=== PATIENT | female | born 1975 | race Hispanic/Latino ===

== ENCOUNTER 2018-10-20 08:29 | Day surgery (SDC) | payer OTHER ==
[~2018-10-20 08:29] MED LIST: EPOETIN ALFA 10,000 UNIT/ML ONE
--- OUTSIDE RECORDS SUMMARY | 2018-10-20 08:32 | XMS REPORT ---
:1975 Author Organization eClinicalWorks Care Team Providers Name Role Phone Braden Cornejo Provider Role Unavailable Allergies, Adverse Reactions, Alerts Substance Reaction Event Type N.K.D.A. Info Not Available Non Drug Allergy Problems Problem Type Condition Code Onset Dates Condition Status Problem Stress incontinence (female) (male) N39.3 Active Problem Obesity, unspecified E66.9 Active Problem Pain in unspecified ankle and M25.579 Active joints of unspecified foot Problem Anxiety F41.9 Active Problem Urinary frequency R35.0 Active Problem Skin necrosis I96 Active Problem Fatigue R53.83 Active Problem Snoring R06.83 Active Problem Insomnia G47.00 Active Problem HTN (hypertension) I10 Active Assessment Visit for wound check Z51.89 Active Problem Chronic depressive person F34.1 Active Problem Influenza vaccine administered Z23 Active Medications Medication Code Code Instructions Start End Status Dosage System Date Date Zithromax Z-Marky [facility] 27517873814 250 MG Orally Active 2 tablets on Once a day the first day, then 1 tablet daily for 4 days Naprosyn [facility] 22904270025 500 MG Orally Active 1 tablet with every 12 hrs food or milk as needed Hydrocodone-Johnnie ND 46345566551 10-325 MG Active 1 tablet as taminophen Orally every 6 needed hrs Propranolol HCl ND 05352625640 20 MG Orally Active 1 tablet Twice a day Soma ND 85270142872 350 MG Orally Active 1 tablet as Four times a needed day Vitamin D3 [facility] 60920829734 1000 UNIT Active 1 capsule Orally Once a day Seroquel ND 30522907505 300 MG Orally Aug 30, Active 1 tablet Once a day 2017 Bactrim DS [facility] 20744439631 800-160 MG Active 1 tablet Orally Twice a day Levofloxacin ND 93584993559 500 MG Orally Active 1 tablet Once a day BusPIRone HCl ND 35069582643 15 MG Orally Active 1 tablet Twice a day Santyl ND 85698066799 250 UNIT/GM October Active 1 application Externally Once 2017 05, to affected a day 2018 [facility] 88773324133 250 UNIT/GM October Active 1 application Externally Once 2017 to affected a day area Results No Known Results Summary Purpose eClinicalWorks Submission
--- OUTSIDE RECORDS SUMMARY | 2018-10-20 08:32 | XMS REPORT ---
[...] Active Problem HTN (hypertension) I10 Active Assessment Encounter for postoperative wound Z48.89 Active care Assessment Encounter for wound care Z51.89 Active Problem Chronic depressive person F34.1 Active Problem Influenza vaccine administered Z23 Active Medications Medication Code Code Instructions Start End Status Dosage System Date Date Santyl [facility] 38363884853 250 UNIT/GM October Active 1 application Externally Once 2017 05, to affected a day 2018 area Soma ND 65668764467 350 MG Orally Active 1 tablet as Four times a needed day Propranolol HCl ND 10134184933 20 MG Orally Active 1 tablet Twice a day Vitamin D3 [facility] 45935657423 1000 UNIT Active 1 capsule Orally Once a day Levofloxacin ND 03513874995 500 MG Orally Active 1 tablet Once a day Santyl [facility] 24472181697 250 UNIT/GM October Active 1 application Externally Once 2017 to affected a day area Hydrocodone-Johnnie ND 12356777836 10-325 MG Active 1 tablet as taminophen Orally every 6 needed hrs Zithromax Z-Marky ND 96597631646 250 MG Orally Active 2 tablets on Once a day the first day, then 1 tablet daily for 4 days Seroquel ND 26313344162 300 MG Orally Aug 30, Active 1 tablet Once a day 2017 Naprosyn ND 36905330427 500 MG Orally Active 1 tablet with every 12 hrs food or milk as needed BusPIRone HCl [facility] 72155491652 15 MG Orally Active 1 tablet Twice a day Bactrim DS [facility] 59262650678 800-160 MG Active 1 tablet Orally Twice a day Results No Known Results Summary Purpose eClinicalWorks Submission
--- OUTSIDE RECORDS SUMMARY | 2018-10-20 08:32 | XMS REPORT ---
[...] HTN (hypertension) I10 Active Assessment Encounter for wound care Z51.89 Active Problem Chronic depressive person F34.1 Active Problem Influenza vaccine administered Z23 Active Medications Medication Code Code Instructions Start End Status Dosage System Date Date BusPIRone HCl [facility] 30851872689 15 MG Orally Active 1 tablet Twice a day Levofloxacin ND 95656431034 500 MG Orally Active 1 tablet Once a day Santyl [facility] 24495999018 250 UNIT/GM October Active 1 application Externally Once 2017 05, to affected a day 2018 area Zithromax Z-Marky ND 63489951679 250 MG Orally Active 2 tablets on Once a day the first day, then 1 tablet daily for 4 days Bactrim DS [facility] 97668788832 800-160 MG Active 1 tablet Orally Twice a day Hydrocodone-Johnnie ND 46850021777 10-325 MG Active 1 tablet as taminophen Orally every 6 needed hrs Soma ND 26320808113 350 MG Orally Active 1 tablet as Four times a needed day Naprosyn ND 64773476821 500 MG Orally Active 1 tablet with every 12 hrs food or milk as needed Vitamin D3 [facility] 85294478107 1000 UNIT Active 1 capsule Orally Once a day Seroquel ND 84495043980 300 MG Orally Aug 30, Active 1 tablet Once a day 2017 Propranolol HCl ND 97585194318 20 MG Orally Active 1 tablet Twice a day Results No Known Results Summary Purpose eClinicalWorks Submission
--- OUTSIDE RECORDS SUMMARY | 2018-10-20 08:32 | XMS REPORT ---
:1975 Author Organization eClinicalWorks Care Team Providers Name Role Phone Braden Cornejo Provider Role Unavailable Allergies No Known Allergies Problems Problem Type Condition Code Onset Dates Condition Status Problem Stress incontinence (female) (male) N39.3 Active Problem Obesity, unspecified E66.9 Active Problem Pain in unspecified ankle and M25.579 Active joints of unspecified foot Problem Chronic depressive person F34.1 Active Problem Influenza vaccine administered Z23 Active Problem Anxiety F41.9 Active Problem Urinary frequency R35.0 Active Problem Skin necrosis I96 Active Problem Fatigue R53.83 Active Problem Snoring R06.83 Active Problem Insomnia G47.00 Active Problem HTN (hypertension) I10 Active Medications Medication Code Code Instructions Start End Status Dosage System Date Date Albina [facility] 76967954296 250 UNIT/GM October Active 1 application Externally Once 2017 to affected a day area Results No Known Results Summary Purpose Intent [employer] Submission
--- OUTSIDE RECORDS SUMMARY | 2018-10-20 08:32 | XMS REPORT ---
[...] Start End Status Dosage System Date Date Curity Plain [facility] 55440642118 - 07/22 packing to December 09, Active as directed Packing Strip wound daily 2018 dressing changes Results No Known Results Summary Purpose eClinicalWorks Submission
--- OUTSIDE RECORDS SUMMARY | 2018-10-20 08:32 | XMS REPORT ---
[...] I10 Active Assessment Encounter for wound care of Z51.89 Active surgical pin site Assessment Skin necrosis I96 Active Problem Chronic depressive person F34.1 Active Assessment Encounter for postoperative wound Z48.89 Active care Problem Influenza vaccine administered Z23 Active Medications Medication Code Code Instructions Start End Status Dosage System Date Date Soma [facility] 30787019567 350 MG Orally Active 1 tablet as Four times a needed day Naprosyn ND 57937053728 500 MG Orally Active 1 tablet with every 12 hrs food or milk as needed Propranolol HCl ND 21096236116 20 MG Orally Active 1 tablet Twice a day Seroquel ND 20014389543 300 MG Orally Aug 30, Active 1 tablet Once a day 2017 Zithromax Z-Marky ND 22483490317 250 MG Orally Active 2 tablets on Once a day the first day, then 1 tablet daily for 4 days Santyl ND 66501709791 250 UNIT/GM October Active 1 application Externally Once 2017 05, to affected a day 2018 area BusPIRone HCl ND 14254727068 15 MG Orally Active 1 tablet Twice a day Levofloxacin ND 16357036383 500 MG Orally Active 1 tablet Once a day Vitamin D3 [facility] 69949535301 1000 UNIT Active 1 capsule Orally Once a day Bactrim DS [facility] 57150605674 800-160 MG Active 1 tablet Orally Twice a day Hydrocodone-Johnnie [facility] 55657416131 10-325 MG Active 1 tablet as taminophen Orally every 6 needed hrs Results No Known Results Summary Purpose eClinicalWorks Submission
--- OUTSIDE RECORDS SUMMARY | 2018-10-20 08:32 | XMS REPORT ---
:1975 Author Organization eClinicalWorks Care Team Providers Name Role Phone Senior, Na Provider Role Unavailable Allergies No Known Allergies [...] Active Problem HTN (hypertension) I10 Active Assessment Insomnia G47.00 Active Problem Chronic depressive person F34.1 Active Problem Influenza vaccine administered Z23 Active Medications Medication Code System Code Instructions Start Date End Date Status Dosage Seroquel [facility] 68684670671 300 MG Orally Aug 30, Active 1 tablet Once a day 2017 Results No Known Results Summary Purpose eClinicalWorks Submission
--- OUTSIDE RECORDS SUMMARY | 2018-10-20 08:32 | XMS REPORT ---
[...] care of Z51.89 Active surgical pin site Problem Chronic depressive person F34.1 Active Problem Influenza vaccine administered Z23 Active Medications Medication Code Code Instructions Start End Status Dosage System Date Date BusPIRone HCl ND 96594005947 15 MG Orally Active 1 tablet Twice a day Propranolol HCl ND 55953022837 20 MG Orally Active 1 tablet Twice a day Zithromax Z-Marky ND 16458802488 250 MG Orally Active 2 tablets on Once a day the first day, then 1 tablet daily for 4 days Bactrim DS [facility] 43207701768 800-160 MG Active 1 tablet Orally Twice a day Seroquel ND 42102401787 300 MG Orally Aug 30, Active 1 tablet Once a day 2017 Vitamin D3 ND 57695289025 1000 UNIT Active 1 capsule Orally Once a day Soma ND 94651047486 350 MG Orally Active 1 tablet as Four times a needed day Santyl ND 77232015034 250 UNIT/GM October Active 1 application Externally Once 2017 05, to affected a day 2018 area Hydrocodone-Johnnie ND 24971208442 10-325 MG Active 1 tablet as taminophen Orally every 6 needed hrs Naprosyn ND 63959149443 500 MG Orally Active 1 tablet with every 12 hrs food or milk as needed Levofloxacin NDC 86466021192 500 MG Orally Active 1 tablet Once a day Results No Known Results Summary Purpose eClinicalWorks Submission
--- OUTSIDE RECORDS SUMMARY | 2018-10-20 08:33 | XMS REPORT ---
:1975 Author Organization eClinicalWorks Care Team Providers Name Role Phone DinonoaBraden Provider Role Unavailable Allergies, Adverse Reactions, Alerts [...] Active Problem HTN (hypertension) I10 Active Assessment Follow up Z09 Active Problem Chronic depressive person F34.1 Active Problem Influenza vaccine administered Z23 Active Medications Medication Code Code Instructions Start End Status Dosage System Date Date Zithromax Z-Marky [facility] 46744719134 250 MG Orally Active 2 tablets on Once a day the first day, then 1 tablet daily for 4 days Bactrim DS [facility] 56961845603 800-160 MG Active 1 tablet Orally Twice a day Seroquel ND 61558243978 300 MG Orally Active 1 tablet Once a day Hydrocodone-Johnnie ND 27102032699 10-325 MG Active 1 tablet as taminophen Orally every 6 needed hrs Propranolol HCl ND 96776852406 20 MG Orally Active 1 tablet Twice a day Soma ND 49905597592 350 MG Orally Active 1 tablet as Four times a needed day Santyl ND 14855300583 250 UNIT/GM October Active 1 application Externally Once 2017 to affected a day area BusPIRone HCl ND 89313824248 15 MG Orally Active 1 tablet Twice a day Levofloxacin ND 62941242484 500 MG Orally Active 1 tablet Once a day Vitamin D3 [facility] 46580074383 1000 UNIT Active 1 capsule Orally Once a day Curity Plain [facility] 47973525614 - 07/22 packing December 09 Active as directed Packing Strip to wound daily 2018 dressing changes Curity Iodoform [facility] 81153848580 - insert 07/22December 14, Active as directed Packing Strip packing into 2018 wound daily dressing changes Naprosyn [facility] 97099646831 500 MG Orally Active 1 tablet with every 12 hrs food or milk as needed Results No Known Results Summary Purpose eClinicalWorks Submission
--- OUTSIDE RECORDS SUMMARY | 2018-10-20 08:33 | XMS REPORT ---
[...] Active Problem HTN (hypertension) I10 Active Assessment HTN (hypertension) I10 Active Problem Chronic depressive person F34.1 Active Problem Influenza vaccine administered Z23 Active Medications Medication Code Code Instructions Start End Status Dosage System Date Date Propranolol HCl [facility] 11614525852 20 MG Orally Active 1 tablet Twice a day Results No Known Results Summary Purpose eClinicalWorks Submission
--- OUTSIDE RECORDS SUMMARY | 2018-10-20 08:33 | XMS REPORT ---
:1975 Author Organization eClinicalWorks Care Team Providers Name Role Phone ChantalBraden Provider Role Unavailable Allergies, Adverse Reactions, Alerts Substance Reaction Event Type N.K.D.A. Info Not Available Non Drug Allergy Problems Problem Type Condition Code Onset Dates Condition Status Problem Stress incontinence (female) N39.3 Active (male) Problem Obesity, unspecified E66.9 Active Problem Pain in unspecified ankle and M25.579 Active joints of unspecified foot Problem Anxiety F41.9 Active Problem Urinary frequency R35.0 Active Problem Skin necrosis I96 Active Problem Fatigue R53.83 Active Problem Snoring R06.83 Active Problem Insomnia G47.00 Active Problem HTN (hypertension) I10 Active Assessment Unspecified open wound of S31.109D Active abdominal wall, unspecified quadrant without penetration into peritoneal cavity, subsequent encounter Problem Chronic depressive person F34.1 Active Assessment Local infection of the skin and L08.9 Active subcutaneous tissue, unspecified Problem Influenza vaccine administered Z23 Active Medications Medication Code Code Instructions Start End Status Dosage System Date Date Bactrim DS [facility] 26276997144 800-160 MG Active 1 tablet Orally Twice a day Propranolol HCl ND 19076033108 20 MG Orally Active 1 tablet Twice a day Curity Iodoform ND 78636242596 - insert 07/22December 14, Active as directed Packing Strip packing into 2018 wound daily dressing changes BusPIRone HCl ND 97025754700 15 MG Orally Active 1 tablet Twice a day Levofloxacin ND 09047311401 500 MG Orally Active 1 tablet Once a day Naprosyn ND 52462667948 500 MG Orally Active 1 tablet with every 12 hrs food or milk as needed Vitamin D3 [facility] 52965416337 1000 UNIT Active 1 capsule Orally Once a day Santyl ND 01996738005 250 UNIT/GM October Active 1 application Externally Once 2017 to affected a day area Soma ND 40263530811 350 MG Orally Active 1 tablet as Four times a needed day Curity Plain ND 51361568459 - 07/22 packing December 09, Active as directed Packing Strip to wound daily 2018 dressing changes Seroquel [facility] 04901607879 300 MG Orally Active 1 tablet Once a day Hydrocodone-Johnnie [facility] 19745738751 10-325 MG Active 1 tablet as taminophen Orally every 6 needed hrs Zithromax Z-Marky [facility] 15181061948 250 MG Orally Active 2 tablets on Once a day the first day, then 1 tablet daily for 4 days Results No Known Results Summary Purpose eClinicalWorks Submission
--- OUTSIDE RECORDS SUMMARY | 2018-10-20 08:33 | XMS REPORT ---
[...] End Status Dosage System Date Date Curity [facility] 64268692519 - insert 07/22December 14, Active as directed Iodoform packing into 2018 Packing Strip wound daily dressing changes Results No Known Results Summary Purpose eClinicalWorks Submission
--- OUTSIDE RECORDS SUMMARY | 2018-10-20 08:33 | XMS REPORT ---
:1975 Author Organization eClinicalWorks Care Team Providers Name Role Phone LelelisaBraden Provider Role Unavailable Allergies No Known Allergies [...] End Status Dosage System Date Date Albina [facility] 28892932842 250 UNIT/GM with Feb 16, Mar 18, Active 1 application packing tightly 2017 2017 to affected into wound Once area a day to clean wound Results No Known Results Summary Purpose [employer] Submission
--- OUTSIDE RECORDS SUMMARY | 2018-10-20 08:33 | XMS REPORT ---
[...] Active Problem HTN (hypertension) I10 Active Medications No Known Medications Results No Known Results Summary Purpose eClinicalWorks Submission
--- OUTSIDE RECORDS SUMMARY | 2018-10-20 08:33 | XMS REPORT ---
[...] Assessment Encounter for wound care Z51.89 Active Assessment Encounter for postoperative wound Z48.89 Active care Problem Chronic depressive person F34.1 Active Assessment Visit for wound check Z51.89 Active Problem Influenza vaccine administered Z23 Active Medications Medication Code Code Instructions Start End Status Dosage System Date Date Propranolol HCl ND 06786203019 20 MG Orally Active 1 tablet Twice a day Santyl ND 92458635405 250 UNIT/GM December 28January Active 1 application Externally Once 2017 12, to affected a day 2018 area Soma ND 11375774443 350 MG Orally Active 1 tablet as Four times a needed day Seroquel ND 44021657820 300 MG Orally Aug 30, Active 1 tablet Once a day 2018 BusPIRone HCl ND 16078760278 15 MG Orally Active 1 tablet Twice a day Curity Iodoform ND 97028246095 - insert 07/22December 14, Active as directed Packing Strip packing into 2018 wound daily dressing changes Curity Plain NDC 48158592149 - 07/22 packing December 09, Active as directed Packing Strip to wound daily 2018 dressing changes Bactrim DS ND 79564024807 800-160 MG Active 1 tablet Orally Twice a day Levofloxacin ND 28494854238 500 MG Orally Active 1 tablet Once a day Hydrocodone-Johnnie ND 14030216335 10-325 MG Active 1 tablet as taminophen Orally every 6 needed hrs Zithromax Z-Marky [facility] 53907203632 250 MG Orally Active 2 tablets on Once a day the first day, then 1 tablet daily for 4 days Naprosyn [facility] 43159922107 500 MG Orally Active 1 tablet with every 12 hrs food or milk as needed Vitamin D3 [facility] 12889335240 1000 UNIT Active 1 capsule Orally Once a day Santyl [facility] 49365339388 250 UNIT/GM October Active 1 application Externally Once 2017 to affected a day area Results No Known Results Summary Purpose eClinicalWorks Submission
--- OUTSIDE RECORDS SUMMARY | 2018-10-20 08:34 | XMS REPORT ---
[...] Status Dosage System Date Date Propranolol HCl [facility] 14403423026 20 MG Orally Active 1 tablet Twice a day Curity Iodoform [facility] 47778570693 - insert 07/22December 14, Active as directed Packing Strip packing into 2018 wound daily dressing changes Vitamin D3 [facility] 04872008145 1000 UNIT Active 1 capsule Orally Once a day Naprosyn ND 82288386050 500 MG Orally Active 1 tablet with every 12 hrs food or milk as needed Soma ND 13512492518 350 MG Orally Active 1 tablet as Four times a needed day Zithromax Z-Marky ND 74273959197 250 MG Orally Active 2 tablets on Once a day the first day, then 1 tablet daily for 4 days Santyl [facility] 64707316279 250 UNIT/GM October Active 1 application Externally Once 2017 to affected a day area BusPIRone HCl ND 23372595247 15 MG Orally Active 1 tablet Twice a day Seroquel ND 93859252154 300 MG Orally Active 1 tablet Once a day Levofloxacin [facility] 95162959609 500 MG Orally Active 1 tablet Once a day Hydrocodone-Johnnie [facility] 91236686323 10-325 MG Active 1 tablet as taminophen Orally every 6 needed hrs Bactrim DS [facility] 02122101458 800-160 MG Active 1 tablet Orally Twice a day Curity Plain [facility] 03318561213 - 07/22 packing December 09, Active as directed Packing Strip to wound daily 2017 dressing changes Results No Known Results Summary Purpose eClinicalWorks Submission
--- OUTSIDE RECORDS SUMMARY | 2018-10-20 08:34 | XMS REPORT ---
:1975 Author Organization eClinicalWorks Care Team Providers Name Role Phone Senoir, Na Provider Role Unavailable Allergies No Known [...] HTN (hypertension) I10 Active Medications Medication Code System Code Instructions Start Date End Date Status Dosage Seroquel [facility] 55552543493 300 MG Orally Active 1 tablet Once a day at bedtime Results No Known Results Summary Purpose eClinicalWorks Submission
--- OUTSIDE RECORDS SUMMARY | 2018-10-20 08:34 | XMS REPORT ---
[...] End Status Dosage System Date Date Santyl [facility] 31854614036 250 UNIT/GM October Active 1 application Externally Once 2017 to affected a day area Soma ND 36772902222 350 MG Orally Active 1 tablet as Four times a needed day Seroquel [facility] 91805830008 300 MG Orally Active 1 tablet Once a day Propranolol HCl ND 29985458031 20 MG Orally Active 1 tablet Twice a day BusPIRone HCl ND 32733497129 15 MG Orally Active 1 tablet Twice a day Bactrim DS ND 69531917306 800-160 MG Active 1 tablet Orally Twice a day Levofloxacin [facility] 73195956840 500 MG Orally Active 1 tablet Once a day Curity Plain ND 22357625333 - 07/22 packing December 09, Active as directed Packing Strip to wound daily 2018 dressing changes Curity Iodoform ND 41853938187 - insert 07/22December 14, Active as directed Packing Strip packing into 2018 wound daily dressing changes Zithromax Z-Marky ND 75511947264 250 MG Orally Active 2 tablets on Once a day the first day, then 1 tablet daily for 4 days Naprosyn [facility] 11912192594 500 MG Orally Active 1 tablet with every 12 hrs food or milk as needed Vitamin D3 [facility] 99829090195 1000 UNIT Active 1 capsule Orally Once a day Hydrocodone-Johnnie [facility] 04074369893 10-325 MG Active 1 tablet as taminophen Orally every 6 needed hrs Results No Known Results Summary Purpose eClinicalWorks Submission
[2018-10-20 08:47] LABS: Specific Gravity 1.015 (1.005-1.030)
[2018-10-20] MEDS ORDERED: Ringers Lactate 1,000 ML IV ONE (08:52)
[2018-10-20] MEDS ORDERED: FENTANYL CITR 100 MCG/2 ML ONE ×3 (09:07→11:28)
[2018-10-20] MEDS ORDERED: LIDOCAINE 2% MPF 5 ML VIAL ONE (09:07)
[2018-10-20] MEDS ORDERED: MIDAZOLAM HCL 2 MG/2 ML INJ ONE ×2 (09:07→09:57)
[2018-10-20] MEDS ORDERED: ONDANSETRON 4 MG/2 ML VIAL ONE ×2 (09:07→11:20)
[2018-10-20] MEDS ORDERED: PROPOFOL 200 MG/20 ML VIAL IV ONE ×2 (09:07→09:57)
[2018-10-20] MEDS: BUPIVACA 0.25%/EPI 0.0005% MDV 50 ML VIAL ONE ×2 (09:41→10:02)
[2018-10-20] MEDS ORDERED: LIDOCAINE 1% MPF 5 ML VIAL ONE (09:57)
[2018-10-20] MEDS: CEFAZOLIN/SWI 1gm 1 GM/10 ML SYR ONE ×3 (10:03→10:25)
[2018-10-20] MEDS ORDERED: KETOROLAC 30 MG/ML INJ ONE (10:47)
--- NOTE | 2018-10-20 11:50 | P.OP ---
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
[2018-10-20] MEDS ORDERED: MEPERIDINE HCL 25 MG/0.5 ML ONE (12:33)
[2018-10-20] MEDS ORDERED: HYDROCODONE/APAP 5/325 MG TAB ONE (13:41)
--- NOTE | 2018-10-20 23:26 | OP ---
Date of Procedure: 10/20/2018 Surgeon: Braden Cornejo MD, Preoperative Diagnoses: Right abdominopelvic chronic draining wound with sinus. Postoperative Diagnoses: Right abdominopelvic chronic draining wound with sinus. Procedure Performed: A wide excision of right abdominopelvic chronic draining wound with sinus. Anesthesia: General endotracheal. Estimated Blood Loss: Less than cc. Specimen: Debridement tissue and skin. Findings: Draining sinus tract from skin surface undermined from lateral to medial for approximately 12 cm long segment with draining sinus and tracked about the thickness of a thumb extending to the a bdominal wall, but not into the abdominal wall. Complications: None. Transferred to recovery room in good condition. Procedure In Detail: After informed consent was obtained, the patient was brought to the operating r oom, prepped and draped in the usual sterile fashion. After adequate anesthesia was achieved, an ell iptical incision was made for approximately 7 cm x 5 cm around a chronic draining sinus wound of the right abdominopelvic, abdominal skin. The skin and subcutaneous tissues were dissected circumferenti ally. A probe was placed into the chronic wound to determine its distal extent and I circumferential ly dissected using electrocautery on the anterior surface of the abdominal wall, but not into the abd ominal wall. I circumferentially dissected this chronic draining wound on the undersurface of the sk in all the way to approximately 12-14 cm in length. It was approximately the size of the thumb in it s tubular, slightly conical shape. It was taken out in its entirety and sent off for pathologic exam ination with the associated skin. All necrotic tissue was removed. The area was copiously irrigated multiple times until completely dry. Hemostasis was easily achieved with electrocautery. The abdom inal wall was not violated. I then created some skin flaps circumferentially in a deep dermal aspect and I was able to reapproximate the skin using 3-0 interrupted Vicryl sutures as well as a running 4 -0 Monocryl stitch and Dermabond placed over the top. The patient tolerated the procedure well witho ut evidence of complications, transferred to the PACU in good condition. All counts were correct at the end of the case. RANDI/CHANTELLE Voice ID: [id number] Report ID: [id number]
== END 2018-10-20 13:51 | disposition home or self-care (01) ==
LOC: OR 08:29
PROVIDERS: ATTEND Surgery
PROC: 0JB80ZZ Excision of Abdomen Subcutaneous Tissue and Fascia, Open Approach (ICD-10-PCS; principal; 2018-10-20 10:30)
DX: S31.109A Unspecified open wound of abdominal wall, unspecified quadrant without penetration into peritoneal cavity, initial encounter (principal); X58.XXXA Exposure to other specified factors, initial encounter; L08.9 Local infection of the skin and subcutaneous tissue, unspecified; F32.9 Major depressive disorder, single episode, unspecified; F41.9 Anxiety disorder, unspecified; G47.00 Insomnia, unspecified; I10 Essential (primary) hypertension; N39.3 Stress incontinence (female) (male); Z79.899 Other long term (current) drug therapy
CPT/HCPCS: 81025; 88304; J0690; J0885; J2175; J2250; J2405; J2704; J3010

== ENCOUNTER 2023-12-01 05:34 | Emergency (ER) | payer SELFPAY ==
--- OUTSIDE RECORDS SUMMARY | 2023-12-01 05:37 | XMS REPORT | Continuity of Care Document ---
Author Name Unknown Address [address] 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 Role Phone Unavailable Unavailable Unavailable Problems Condition Name Condition Details Condition Category Status Onset Date Resolution Date Last Treatment Date Treating Clinician Comments Source Stress incontinen ce (female) (male) Stress incontinen ce (female) (male) Problem Active [facility] Obesity, unspecifie d Obesity, unspecifie d Problem Active [facility] Pain in unspecifie d ankle and joints of unspecifie d foot Pain in unspecifie d ankle and joints of unspecifie d foot Problem Active [facility] Anxiety Anxiety Problem Active [facility] Urinary frequency Urinary frequency Problem Active [facility] Skin necrosis Skin necrosis Problem Active [facility] Fatigue Fatigue Problem Active [facility] Snoring Snoring Problem Active [facility] Insomnia Insomnia Problem Active [facility] HTN (hypertens ion) HTN (hypertens ion) Problem Active [facility] Chronic depressive person Chronic depressive person Problem Active [facility] Influenza vaccine administer ed Influenza vaccine administer ed Problem Active [facility] Body mass index (BMI) of 32.0 to 32.9 in adult Body mass index (BMI) of 32.0 to 32.9 in adult Problem Active [facility] Screening for cervical cancer Screening for cervical cancer Problem Active [facility] Screening for breast cancer Screening for breast cancer Problem Active [facility] Breast mass, left Breast mass, left Problem Active [facility] Encounter for general adult medical examinatio n without abnormal findings Encounter for general adult medical examinatio n without abnormal findings Problem Active [facility] Presence of bilateral breast implant Presence of bilateral breast implant Problem Active [facility] Routine gynecologi syeda examinatio n Routine gynecologi syeda examinatio n Problem Active [facility] Medications Ordered Medication Name Filled Medication Name Start Date Stop Date Current Medication? Ordering Clinician Indication Dosage Frequency Signature (SIG) Comments Components Source PredniSONE PredniSONE 02-12 00:00: 00 02-22 00:00 :00 No Na Senior 2 tablets dailyx 5 days then 1 tablet daily x 5 days [facility] Curity Iodoform Packing Strip Curity Iodoform Packing Strip 529 00:00: 00 Yes Na Senior as directed [facility] Curity Plain Packing Strip Curity Plain Packing Strip 524 00:00: 00 Yes Na Senior as directed [facility] Santyl Santyl 4-26 00:00: 00 Yes Na Senior 1 applicatio n to affected area [facility] Seroquel Seroquel Yes Na Senior 1 tablet [facility] BusPIRone HCl BusPIRone HCl Yes Na Senior 1 tablet [facility] Bactrim DS Bactrim DS Yes Na Senior 1 tablet [facility] Naprosyn Naprosyn Yes Na Senior 1 tabl et with food or milk as needed [facility] Propranolol HCl Propranolol HCl Yes Na Senior 1 tablet [facility] Vitamin D3 Vitamin D3 Yes Na Senior 1 capsule [facility] Hydrocodone -Acetaminop hen Hydrocodone -Acetaminop hen Yes Na Senior 1 tablet as needed [facility] Soma Soma Yes Na Senior 1 tablet as needed [facility] Levofloxaci n Levofloxaci n Yes Na Senior 1 tablet [facility] Zithromax Z-Marky Zithromax Z-Marky Yes Na Senior 2 tablets on the first day, then 1 tablet daily for 4 days [facility] Medrol Medrol Yes Na Senior 1 tablet with food or milk [facility] Motrin Motrin Yes Na Senior not defined [facility] Seroquel Seroquel Yes Na Senior 1 tablet [facility] Acyclovir Acyclovir Yes Na Senior 1 tablet [facility] Encounters Start Date/Time End Date/Time Encounter Type Admission Type Attending [facility] Care Facility Care Department Encounter ID Source 2023-09-02 14:47:29 2023-09-02 14:47:29 Outpatient [facility] [id number] Hollis Sherman 2023-07-23 13:24:15 2023-07-23 13:24:15 Outpatient [facility] SFA [id number] Hollis Sherman 2023-06-29 10:33:26 2023-06-29 10:33:26 Outpatient [facility] SFA [id number] Hollis Sherman 2023-06-28 13:17:17 2023-06-28 13:17:17 Outpatient [facility] SFA [id number] Hollis Sherman 2023-06-03 13:16:45 2023-06-03 13:16:45 Outpatient [facility] SFA [id number] Hollis Sherman 2023-06-02 13:28:36 2023-06-02 13:28:36 Outpatient [facility] SFA [id number] Hollis Sherman 2023-05-06 15:32:13 2023-05-06 15:32:13 Outpatient [facility] SFA [id number] Hollis Sherman 2023-05-04 10:34:24 2023-05-04 10:34:24 Outpatient [facility] SFA [id number] Hollis Sherman 2023-04-02 15:13:06 2023-04-02 15:13:06 Outpatient [facility] SFA [id number] Hollis Sherman 2023-03-10 14:11:31 2023-03-10 14:11:31 Outpatient [facility] SFA [id number] Hollis Sherman 2023-02-05 10:51:13 2023-02-05 10:51:13 Outpatient [facility] SFA [id number] Hollis Sherman 2023-01-15 11:06:04 2023-01-15 11:06:04 Outpatient [facility] SFA [id number] Hollis Sherman 2023-01-01 10:59:16 2023-01-01 10:59:16 Outpatient [facility] SFA [id number] Hollis Sherman 2022-12-25 10:55:19 2022-12-25 10:55:19 Outpatient [facility] SFA [id number] Hollis Sherman 2022-12-18 11:07:31 2022-12-18 11:07:31 Outpatient [facility] SFA [id number] Hollis Sherman 2022-12-15 16:04:43 2022-12-15 16:04:43 Outpatient [facility] SFA [id number] Hollis Sherman 2022-12-11 15:04:20 2022-12-11 15:04:20 Outpatient [facility] SFA [id number] Hollis Sherman 2022-12-10 09:21:28 2022-12-10 09:21:28 Outpatient [facility] SFA [id number] Hollis Sherman 2022-12-08 16:01:09 2022-12-08 16:01:09 Outpatient [facility] SFA [id number] Hollis Sherman 2020-02-12 09:32:00 2020-02-12 09:32:[address] [id number] 2020-01-29 11:29:00 2020-01-29 11:29:[address] [facility] [id number] [facility] 2020-01-24 09:00:00 2020-01-24 09:00:00 [facility] [id number] [facility] 2020-01-22 11:04:00 2020-01-22 11:04:[address] [facility] [id number] [facility] 2019-07-02 02:52:00 2019-07-02 02:52:[address] [id number] [facility] 2019-06-27 09:00:00 2019-06-27 09:00:00 [facility] [id number] [facility] 2019-05-31 14:31:00 2019-05-31 14:31:00 [facility] [id number] [facility] 2019-05-31 09:20:00 2019-05-31 09:20:[address] [facility] [id number] [facility] 2018-11-28 16:07:00 2018-11-28 16:07:[address] [facility] [id number] [facility] 2018-11-23 10:45:00 2018-11-23 10:45:00 [facility] [id number] [facility] 2018-11-10 10:11:00 2018-11-10 10:11:00 [facility] [id number] [facility] 2018-11-02 09:47:00 2018-11-02 09:47:[address] [facility] [id number] [facility] 2018-11-01 08:45:00 2018-11-01 08:45:00 [facility] [id number] [facility] 2018-10-27 15:30:00 2018-10-27 15:30:00 [facility] [id number] [facility] 2018-10-18 13:30:00 2018-10-18 13:30:00 [facility] [id number] [facility] 2018-09-06 10:16:00 2018-09-06 10:16:00 [facility] [id number] [facility] 2018-08-25 13:38:00 2018-08-25 13:38:[address] [facility] [address] [facility] [id number] [facility] 2018-08-16 15:00:00 2018-08-16 15:00:00 [facility] [id number] [facility] 2018-07-28 15:00:00 2018-07-28 15:00:00 [facility] [id number] [facility] 2018-04-12 10:45:00 2018-04-12 10:45:00 [facility] [id number] [facility] 2018-03-29 13:30:00 2018-03-29 13:30:00 [facility] [id number] [facility] 2018-02-21 14:30:00 2018-02-21 14:30:00 [facility] [id number] [facility] 2018-02-16 16:11:00 2018-02-16 16:11:00 [facility] [id number] [facility] 2018-02-04 10:35:00 2018-02-04 10:35:00 [facility] [id number] [facility] 2017-12-28 14:00:00 2017-12-28 14:00:00 [facility] [id number] [facility] 2017-12-14 10:22:00 2017-12-14 10:22:[address] [facility] [id number] [facility] 2017-12-14 09:45:00 2017-12-14 09:45:00 [facility] [id number] [facility] 2017-12-09 08:41:00 2017-12-09 08:41:00 [facility] [id number] [facility] 2017-11-30 10:00:00 2017-11-30 10:00:00 [facility] [id number] [facility] 2017-11-16 10:00:00 2017-11-16 10:00:00 [facility] [id number] [facility] 2017-11-15 14:30:00 2017-11-15 14:30:[address] [facility] [facility] [id number] [facility] 2017-11-11 10:51:00 2017-11-11 10:51:00 [facility] [id number] [facility] 2017-11-02 09:15:00 2017-11-02 09:15:00 [facility] [id number] [facility] 2017-10-27 15:00:00 2017-10-27 15:00:00 [facility] [id number] [facility] 2017-10-21 15:15:00 2017-10-21 15:15:00 [facility] [id number] [facility] Results Test Description Test Time Test Comments Results Result Co mments Source COMPREHENSIVE METABOLIC [id number] 05:43:59* Test Item Value Reference Range Interpretation Comme nts GLUCOSE (test code = 2217) 111 MG/DL 70-99 H BUN (test code = 220) 8 MG/DL 6-20 CREATININE (test code = 2214) 0.65 MG/DL 0.60-1.30 eGFR (2020 CKD-EPI) (test code = 42446) 111 ML/MIN/1.73 >60 CALC BUN/CREAT (test code = 2235) 12 RATIO 6-28 SODIUM (test code = 223) 144 MEQ/L 133-146 POTASSIUM (test code = 2228) 4.6 MEQ/L 3.5-5.4 CHLORIDE (test code = 2215) 104 MEQ/L 95-107 CARBON DIOXIDE (test code = 2206) 21 MEQ/L 19-31 CALCIUM (test code = 2209) 10.0 MG/DL 8.5-10.5 PROTEIN, TOTAL (test code = 2229) 7.6 G/DL 6.1-8.3 ALBUMIN (test code = 2201) 4.7 G/DL 3.5-5.2 CALC GLOBULIN (test code = 2240) 2.9 G/DL 1.9-3.7 CALC A/G RATIO (test code = 2234) 1.6 RATIO 1.0-2.6 BILIRUBIN, TOTAL (test code = 2207) <0.2 MG/DL See_Comment [Automated me ssage] The system which generated this result transmitted reference range: <=1.2. The reference range was not used to interpret this result as normal/abnormal. ALKALINE PHOSPHATASE (test code = 2204) 71 U/L 40-116 AST (test code = 2218) 28 U/L 9-40 ALT (test code = 2219) 23 U/L 5-40 HIV 1/2 4TH GEN, RFLX [id number] 04:38:10* Test Item Value Reference Range Interpretation Comme nts HIV 1/2 4TH GEN, RFLX CONF ( test code = 3514) NON-REACTIVE NON-REACTIVE HEPATITIS PANEL, [id number] 04:38:10* Test Item Value Reference Range Interpretation Comme nts HEPATITIS A IgM (test code = 18108) NON-REACTIVE NON-REACTIVE HEPATITIS B CORE IgM (test code = 4644) NON-REACTIVE NON-REACTIVE HEPATITIS B SURF AG (test code = 2739) NON-REACTIVE NON-REACTIVE HEPATITIS C ANTIBODY (test code = 4675) NON-REACTIVE NON-REACTIVE INTERPRETATION HEPATITIS A: (test code = 2552) (NOTE) Hepatitis A sero logy shows no evidence of acute hepatitis A. INTERPRETATION HEPATITIS B: (test code = 05952) (NOTE) Hepatitis B sero logy shows no evidence of acute hepatitis B andno indication of exposure to hepatitis B virus in the previous tushar eight months. INTERPRETATION HEPATITIS C: (test code = 13440) (NOTE) Hepatitis C sero logy shows no evidence of exposure to hepatitisC virus at this time. It can take up to 12 months after exposure tothe hepatitis C virus for antibodies to become detectable in the blood in certain patients. UNLESS OTHERWISE INDICATED, ALL TESTING PERFORMED AT [facility] [address] [place] [address] [employer]: JULITO MENDOSA M.D. CLIA NUMBER [id number] [facility] [place]. [id number] CBC W/AUTO DIFF WITH [id number] 03:12:26* Test Item Value Reference Range Interpretation Comme nts WBC (test code = 1001) 6.8 K/UL 3.5-11.0 RBC (test code = 1002) 4.63 M/UL 3.80-5.40 HEMOGLOBIN (test code = 1003) 13.2 G/DL 11.5-15.5 HEMATOCRIT (test code = 1004) 39.7 % 34.0-45.0 MCV (test code = 1005) 85.7 fL 80.0-99.0 MCH (test code = 1006) 28.5 PG 25.0-33.0 MCHC (test code = 1007) 33.2 G/DL 31.0-36.0 RDW (test code = 1038) 13.9 % 11.5-15.0 NEUTROPHILS (test code = 1008) 67.8 % LYMPHOCYTES (test code = 1010) 19.8 % MONOCYTES (test code = 1011) 10.3 % EOSINOPHILS (test code = 1012) 0.9 % BASOPHILS (test code = 1013) 0.9 % IMMATURE GRANULOCYTES (test code = 1036) 0.3 % NUCLEATED RBCS (test code = 1065) 0.0 /100 WBC'S See_Comment [Automated Vinvelia ge] The system which generated this result transmitted reference range: 0.0. The reference range was not used to interpret this result as normal/abnormal. PLATELET COUNT (test code = 1015) 406 K/UL 130-400 H ABSOLUTE NEUTROPHILS (test code = 1066) 4.62 K/UL 1.50-7.50 ABSOLUTE LYMPHOCYTES (test code = 1067) 1.35 K/UL 1.00-4.00 ABSOLUTE MONOCYTES (test code = 1068) 0.70 K/UL 0.20-1.00 ABSOLUTE EOSINOPHILS (test code = 1040) 0.06 K/UL 0.00-0.50 ABSOLUTE BASOPHILS (test code = 1069) 0.06 K/UL 0.00-0.20 ABS IMMATURE GRANULOCYTES (test code = 1020) 0.02 K/UL 0.00-0.10 ABS NUCLEATED RBCS (test code = 29677) 0.00 K/UL 0.00-0.11
[2023-12-01] MEDS ORDERED: ONDANSETRON 4 MG/2 ML VIAL ONE (05:49)
[2023-12-01] MEDS ORDERED: MORPHINE 2 MG/ML SYR ONE (05:49)
[2023-12-01] MEDS ORDERED: KETOROLAC 30 MG/ML INJ ONE (05:50)
[2023-12-01] MEDS ORDERED: METOCLOPRAMIDE 10 MG/2mL INJ ONE (05:50)
[2023-12-01] MEDS ORDERED: NA CHLORIDE 0.9% 1,000 ML ONE ×2 (05:50→06:39)
[2023-12-01] MEDS ORDERED: FAMOTIDINE 20 MG/2 ML VIAL IV ONE (05:50)
[2023-12-01] MEDS ORDERED: MORPHINE 4 MG/ML SYR ONE (05:50)
[2023-12-01 06:22] LABS: Absolute Basophils 0.1 K/uL (0-0.5); Absolute Lymphocytes (CBC) 1.4 K/uL (0.7-4.9); Absolute Monocytes 0.4 K/uL (0.1-1.3); Absolute Neutrophil 8.1 K/uL (1.8-8.0); Basophils % 0.5 % (0-1.3); Hematocrit 46.5 % (36.0-45.0); Hemoglobin 15.7 g/dL (12.0-15.0); Lymphocytes % 14.5 % (15.3-44.8); MCH 29.3 pg (27.0-35.0); MCHC 33.8 g/dL (32.0-36.0); MCV 86.7 fL (80-100); Monocytes % 4.3 % (3.3-12.3); Neutrophils % 80.7 % (41.7-73.7); Platelets 305 thou/uL (152-406); RBC Red Blood Cell Count 5.36 M/uL (3.86-4.86); Red Cell Distribution Width 13.7 % (12.1-15.2)
[2023-12-01 06:37] LABS: Albumin 4.2 g/dL (3.4-5.0); Albumin/Globulin Ratio 0.9 (1.1-1.8); Anion Gap 11.7 mEq/L (5.0-15.0); Bilirubin Total 0.7 mg/dL (0.2-1.0); Globulin 4.8 g/dL (2.3-3.5); Potassium 3.7 mEq/L (3.5-5.1)
--- NOTE | 2023-12-01 07:23 | RAD REPORT ---
EXAM DESCRIPTION: CTAbdomen Pelvis W Contrast - 12/01/2023 6:56 am CLINICAL HISTORY: Abdominal pain. ABD PAIN COMPARISON: No comparisons TECHNIQUE: Biphasic CT imaging of the abdomen and pelvis was performed with 100 ml non-ionic IV cont rast. All CT scans are performed using dose optimization technique as appropriate and may include automated exposure control or mA/KV adjustment according to patient size. FINDINGS: The lung bases are clear.Postsurgical changes about the stomach. The liver demonstrates diffuse fatty infiltration. Cholecystectomy clips. The spleen, pancreas, adren al glands and kidneys are within normal limits. Parapelvic left benign renal cysts. Lipoma is noted a long the right oblique musculature measuring 4.6 cm. No bowel obstruction, free air, free fluid or abscess. The appendix is normal. No evidence of signi ficant lymphadenopathy. Mild lumbosacral degenerative changes. IMPRESSION: No acute intra-abdominal or pelvic finding. Mild fatty liver.
[2023-12-01 07:25] LABS: Specific Gravity 1.015 (1.005-1.030); Urine Bilirubin NEGATIVE (Negative); Urine Blood Negative (Negative); Urine Clarity Clear (Clear); Urine Color Colorless (Yellow); Urine Glucose NEGATIVE (Negative); Urine Ketones NEGATIVE (Negative); Urine Microscopic Reflex YN NO UMIC; Urine Nitrite NEGATIVE (Negative); Urine Protein NEGATIVE (Negative); Urine Urobilinogen Normal (Normal); Urine pH 7.5 (5.0-7.0)
--- NOTE | 2023-12-01 07:37 | EDPHYS ---
Physician Documentation [facility] Name: Maya Sosa Age: 48 yrs Sex: Female : 1975 Arrival Date: 12/01/2023 Time: 05:34 Bed 6 Private MD: ED Physician Bao Lucas HPI: 11/30 05:38 This 48 yrs old Female presents to ER via Unassigned with complaints of sp4 Nausea/Vomiting, Fever. 07:32 48-year-old female with history of gastric sleeve and cholecystectomy presents with sp4 acute onset nausea vomiting and epigastric abdominal pain starting at 2 hours prior to arrival associated with profuse vomiting. . Historical: - Allergies: 05:51 No Known Allergies; pf1 - PMHx: 05:51 Hypertension; Anxiety; Depressive disorder; pf1 - PSHx: 05:52 gastric sleeve; lap band; tummy tuck; left ankle; Cholecystectomy; pf1 - Immunization history:: Adult Immunizations not up to date, Client reports having NOT received the Covid vaccine. Last tetanus immunization: > 10 years ago Flu vaccine is not up to date. - Infectious Disease History:: Denies. - Social history:: Smoking status: Patient reports the use of cigarette tobacco products, denies chronic smoking, but will smoke occasionally, Patient uses alcohol, on a daily basis. Patient/guardian denies using street drugs. - Family history:: not pertinent. ROS: 07:32 Constitutional: Negative for fever, chills, and weight loss, positive nausea vomiting sp4 and epigastric abdominal pain 07:32 All other systems are negative, Exam: 07:32 Constitutional: This is a well developed, well nourished patient who is awake, alert, sp4 and in moderate distress secondary to vomiting Head/Face: Normocephalic, atraumatic. Eyes: Pupils equal round and reactive to light, extra-ocular motions intact. Lids and lashes normal. Conjunctiva and sclera are not injected. Cornea within normal limits. Periorbital areas with no swelling, redness, or edema. ENT: Nares patent. No nasal discharge, no septal abnormalities noted. Tympanic membranes are normal and external auditory canals are clear. Oropharynx with no redness, swelling, or masses, exudates, or evidence of obstruction, uvula midline. Mucous membranes moist. Neck: Trachea midline, no thyromegaly or masses palpated, and no cervical lymphadenopathy. Supple, full range of motion without nuchal rigidity, or vertebral point tenderness. Chest/axilla: Normal chest wall appearance and motion. Nontender with no deformity. No lesions are appreciated. Cardiovascular: Regular rate and rhythm with a normal S1 and S2. No gallops, murmurs, or rubs. Normal PMI, no JVD. No pulse deficits. Respiratory: Lungs have equal breath sounds bilaterally, clear to auscultation and percussion. No rales, rhonchi or wheezes noted. No increased work of breathing, no retractions or nasal flaring. Abdomen/GI: Soft, with normal bowel sounds. No distension or tympany. No guarding or rebound. No evidence of tenderness throughout. Back: No spinal tenderness. No costovertebral tenderness. Skin: Warm, dry with normal turgor. Normal color with no rashes, no lesions, and no evidence of cellulitis. MS/ Extremity: Pulses equal, no cyanosis. Neurovascular intact. Full, normal range of motion. Neuro: Awake and alert, GCS 15, oriented to person, place, time, and situation. Cranial nerves II-XII grossly intact. Motor strength 5/5 in all extremities. Sensory grossly intact. Psych: Awake, alert, with orientation to person, place and time. Behavior, mood, and affect are within normal limits Vital Signs: 05:38 BP 169 / 126; Pulse 76; Resp 18; Temp 97.9; Pulse Ox 100% on R/A; Weight 101.6 kg; pf1 Height 5 ft. 7 in. ; Pain 10/10; 07:58 BP 146 / 94; Pulse 71; Resp 18; Pulse Ox 99% on R/A; rs5 05:38 Body Mass Index 35.08 (101.60 kg, 170.18 cm) pf1 05:38 Pain Scale: Adult pf1 [place] Coma Score: 07:32 Eye Response: spontaneous(4). Motor Response: obeys commands(6). Verbal Response: sp4 oriented(5). Total: 15. MDM: 06:09 Patient medically screened. sp4 07:32 Differential diagnosis: Nonspecific abd pain, gastritis, pancreatitis, appendicitis, sp4 diverticulitis, viral gastroenteritis, gastroenteritis. Data reviewed: vital signs, nurses notes, old medical records, lab test result(s), radiologic studies, CT scan. Consideration of Admission/Observation Escalation of care including admission/observation considered. ED course: EXAM DESCRIPTION: CTAbdomen Pelvis W Contrast - 12/01/2023 6:56 am CLINICAL HISTORY: Abdominal pain. ABD PAIN COMPARISON: No comparisons TECHNIQUE: Biphasic CT imaging of the abdomen and pelvis was performed with 100 ml non-ionic IV contrast. All CT scans are performed using dose optimization technique as appropriate and may include automated exposure control or mA/KV adjustment according to patient size. FINDINGS: The lung bases are clear.Postsurgical changes about the stomach. The liver demonstrates diffuse fatty infiltration. Cholecystectomy clips. The spleen, pancreas, adrenal glands and kidneys are within normal limits. Parapelvic left benign renal cysts. Lipoma is noted along the right oblique musculature measuring 4.6 cm. No bowel obstruction, free air, free fluid or abscess. The appendix is normal. No evidence of significant lymphadenopathy. Mild lumbosacral degenerative changes. IMPRESSION: No acute intra-abdominal or pelvic finding. Mild fatty liver. ED course: Patient's pain has improved. Patient will be discharged home with as needed ondansetron and tramadol also clear liquid diet for 24 hours.. 11/30 05:42 Order name: CBC with Diff; Complete Time: 07:05 sp4 11/30 05:42 Order name: CMP; Complete Time: 07:05 sp4 11/30 05:42 Order name: Lipase; Complete Time: 07:05 sp4 11/30 05:42 Order name: Urinalysis w/ reflexes; Complete Time: 07:26 sp4 11/30 05:43 Order name: CT Abd/Pelvis - IV Contrast Only; Complete Time: 07:26 sp4 11/30 05:42 Order name: IV Saline Lock; Complete Time: 05:54 sp4 11/30 05:42 Order name: Labs collected and sent; Complete Time: 06:33 sp4 Administered Medications: 06:02 Drug: NS 0.9% IV 1000 ml IV at 1 bolus Per protocol; 1000 mL bolus Route: IV; Rate: 1 tm6 bolus; Site: right antecubital; 07:01 Follow up: Response: No adverse reaction rs5 06:02 Drug: morphine IVP or IV 6 mg IVP once over 4 mins Route: IVP; Infused Over: 4 mins; tm6 Site: right antecubital; 07:01 Follow up: Response: No adverse reaction; Pain is decreased rs5 06:02 Drug: metoCLOPramide IVP 10 mg IVP once; over 1 to 2 minutes Route: IVP; Site: right tm6 antecubital; 07:01 Follow up: Response: No adverse reaction rs5 06:02 Drug: Famotidine IVP 20 mg IVP once; dilute with 10 mL 0.9% NaCl; give over 2 minutes tm6 Route: IVP; Site: right antecubital; 07:01 Follow up: Response: No adverse reaction rs5 06:02 Drug: Ketorolac IVP 30 mg IVP once Route: IVP; Site: right antecubital; tm6 07:00 Follow up: Response: No adverse reaction rs5 06:03 Drug: Ondansetron IVP 4 mg IVP once; over 2 minutes Route: IVP; Site: right antecubital;tm6 07:00 Follow up: Response: No adverse reaction rs5 07:01 Drug: NS 0.9% IV 1000 ml IV at 125 ml/hr continuous Route: IV; Rate: 125 ml/hr; Site: rs5 right femoral; 07:15 Follow up: Response: No adverse reaction rs5 07:33 Drug: HYDROcodone-acetaminophen PO 5 mg-325 mg 2 tabs PO once Route: PO; rs5 07:59 Follow up: Response: No adverse reaction rs5 07:33 Drug: Promethazine PO 25 mg PO once Route: PO; rs5 07:59 Follow up: Response: No adverse reaction rs5 Disposition Summary: 12/01/23 07:36 Discharge Ordered Notes: Clear liquid diet for 24 hours Location: Home sp4 Problem: new sp4 Symptoms: have improved sp4 Condition: Stable sp4 Diagnosis - Nausea with vomiting, unspecified sp4 - Acute gastroenteritis with nausea and vomiting sp4 Followup: sp4 - With: Private Physician - When: 7 - 10 days - Reason: Recheck today's complaints Discharge Instructions: - Discharge Summary Sheet sp4 - Nausea and Vomiting, Adult sp4 Forms: - Work release form sp4 - Patient Portal Instructions sp4 Prescriptions: - Tramadol 50 mg Oral tablet - take 1 tablet ORAL route every 8 hours as needed; 20 tablet; Refills: 0, sp4 Product Selection Permitted - ondansetron 8 mg Oral Tablet,disintegrating - take 1 tablet ORAL route every 8 hours PRN nausea; 30 tablet; Refills: 0, sp4 Product Selection Permitted Signatures: Dispatcher [employer] EDMS Frida Petty, RN RN pf1 Rafael Foreman RN RN rs5 Bao Lucas MD MD sp4 Leisa Trujillo RN RN tm6 Corrections: (The following items were deleted from the chart) 05:43 05:43 CBC+H.LAB.BRZ ordered. EDMS EDMS 05:43 05:43 COMPREHENSIVE METABOLIC PANEL+C.LAB.BRZ ordered. EDMS EDMS 05:43 05:43 LIPASE+C.LAB.BRZ ordered. EDMS EDMS 05:43 05:43 Urinalysis+U.LAB.BRZ ordered. EDMS EDMS
--- NOTE | 2023-12-01 07:37 | ER ---
Nurse's Notes [facility] Name: Maya Sosa Age: 48 yrs Sex: Female : 1975 Arrival Date: 12/01/2023 Time: 05:34 Bed 6 Private MD: Diagnosis: Nausea with vomiting, unspecified;Acute gastroenteritis with nausea and vomiting Presentation: 11/30 05:38 Chief complaint: Patient states: mid abdominal pain of 10 with vomiting,onset 1630 pf1 yesterday. 05:38 Coronavirus screen: Vaccine status: Patient reports being unvaccinated. Client denies pf1 travel out of the [place] in the last 14 days. At this time, the client does not indicate any symptoms associated with coronavirus-19. Ebola Screen: Patient negative for fever greater than or equal to 101.5 degrees Fahrenheit, and additional compatible Ebola Virus Disease symptoms. Initial Sepsis Screen: Does the patient meet any 2 criteria? No. Patient's initial sepsis screen is negative. Does the patient have a suspected source of infection? No. Patient's initial sepsis screen is negative. Risk Assessment: Do you want to hurt yourself or someone else? Patient reports no desire to harm self or others. Onset of symptoms was November 30, 2023. 05:38 Method Of Arrival: Wheelchair pf1 05:38 Acuity: STEFANIE 3 pf1 Triage Assessment: 05:53 General: Appears in no apparent distress. uncomfortable, obese, well groomed, well pf1 developed, Behavior is cooperative, appropriate for age, anxious. Pain: Complains of pain in abdomen. GI: Reports upper abdominal pain, nausea, vomiting. Historical: - Allergies: 05:51 No Known Allergies; pf1 - PMHx: 05:51 Hypertension; Anxiety; Depressive disorder; pf1 - PSHx: 05:52 gastric sleeve; lap band; tummy tuck; left ankle; Cholecystectomy; pf1 - Immunization history:: Adult Immunizations not up to date, Client reports having NOT received the Covid vaccine. Last tetanus immunization: > 10 years ago Flu vaccine is not up to date. - Infectious Disease History:: Denies. - Social history:: Smoking status: Patient reports the use of cigarette tobacco products, denies chronic smoking, but will smoke occasionally, Patient uses alcohol, on a daily basis. Patient/guardian denies using street drugs. - Family history:: not pertinent. Screenin:55 [facility] ED Fall Risk Assessment (Adult) History of falling in the last 3 months, jj7 including since admission No falls in past 3 months (0 pts) Confusion or Disorientation No (0 pts) Intoxicated or Sedated No (0 pts) Impaired Gait No (0 pts) Mobility Assist Device Used No (0 pt) Altered Elimination No (0 pt) Score/Fall Risk Level 0 - 2 = Low Risk Oriented to surroundings, Maintained a safe environment, Educated pt \T\ family on fall prevention, incl call for assistance when getting out of bed. Abuse screen: Denies threats or abuse. Nutritional screening: No deficits noted. Tuberculosis screening: No symptoms or risk factors identified. Assessment: 06:09 General: Appears distressed, Behavior is cooperative, crying, fussy. Pain: Complains of tm6 pain in abdomen Pain currently is 10 out of 10 on a pain scale. Neuro: No deficits noted. Level of Consciousness is awake, alert, obeys commands, Oriented to person, place, time, situation. Cardiovascular: No deficits noted. Patient's skin is warm and dry. Respiratory: Airway is patent Respiratory effort is even, unlabored, Respiratory pattern is regular, symmetrical. GI: Abdomen is round non-distended. GI: Reports lower abdominal pain, upper abdominal pain, cramping, nausea, vomiting. : No signs and/or symptoms were reported regarding the genitourinary system. EENT: No signs and/or symptoms were reported regarding the EENT system. Derm: No signs and/or symptoms reported regarding the dermatologic system. Musculoskeletal: No signs and/or symptoms reported regarding the musculoskeletal system. 07:14 General: Behavior is cooperative. Pain: Complains of pain in abdomen. Neuro: Level of ap3 Consciousness is awake, alert, obeys commands, Oriented to person, place, time, situation. Cardiovascular: Patient's skin is warm and dry. Respiratory: Airway is patent Respiratory effort is even, unlabored, Respiratory pattern is regular, symmetrical. GI: Reports lower abdominal pain, upper abdominal pain. 07:59 Reassessment: Patient and/or family updated on plan of care and expected duration. Pain rs5 level reassessed. Patient is alert, oriented x 3, equal unlabored respirations, skin warm/dry/pink. Patient states feeling better. Patient states symptoms have improved. Vital Signs: 05:38 BP 169 / 126; Pulse 76; Resp 18; Temp 97.9; Pulse Ox 100% on R/A; Weight 101.6 kg; pf1 Height 5 ft. 7 in. ; Pain 10/10; 07:58 BP 146 / 94; Pulse 71; Resp 18; Pulse Ox 99% on R/A; rs5 05:38 Body Mass Index 35.08 (101.60 kg, 170.18 cm) pf1 05:38 Pain Scale: Adult pf1 [place] Coma Score: 07:32 Eye Response: spontaneous(4). Motor Response: obeys commands(6). Verbal Response: sp4 oriented(5). Total: 15. ED Course: 05:38 Patient arrived in ED. gm2 05:38 Bao Lucas MD is Attending Physician. sp4 05:45 Triage completed. pf1 05:55 Inserted saline lock: 20 gauge in right antecubital area, using aseptic technique. jj7 Blood collected. 05:55 Patient has correct armband on for positive identification. Bed in low position. Call jj7 light in reach. Side rails up X 1. Adult w/ patient. Provided Education on: USE OF CALL BROOKS. Warm blanket given. 06:12 Inserted saline lock: 22 gauge in right forearm, using aseptic technique. vc1 06:58 CT Abd/Pelvis - IV Contrast Only In Process Unspecified. EDMS 07:23 Rafael Foreman, RN is Primary Nurse. rs5 07:59 No provider procedures requiring assistance completed. rs5 07:59 IV discontinued, intact, bleeding controlled, No redness/swelling at site. Pressure rs5 dressing applied. Administered Medications: 06:02 Drug: NS 0.9% IV 1000 ml IV at 1 bolus Per protocol; 1000 mL bolus Route: IV; Rate: 1 tm6 bolus; Site: right antecubital; 07:01 Follow up: Response: No adverse reaction rs5 06:02 Drug: morphine IVP or IV 6 mg IVP once over 4 mins Route: IVP; Infused Over: 4 mins; tm6 Site: right antecubital; 07:01 Follow up: Response: No adverse reaction; Pain is decreased rs5 06:02 Drug: metoCLOPramide IVP 10 mg IVP once; over 1 to 2 minutes Route: IVP; Site: right tm6 antecubital; 07:01 Follow up: Response: No adverse reaction rs5 06:02 Drug: Famotidine IVP 20 mg IVP once; dilute with 10 mL 0.9% NaCl; give over 2 minutes tm6 Route: IVP; Site: right antecubital; 07:01 Follow up: Response: No adverse reaction rs5 06:02 Drug: Ketorolac IVP 30 mg IVP once Route: IVP; Site: right antecubital; tm6 07:00 Follow up: Response: No adverse reaction rs5 06:03 Drug: Ondansetron IVP 4 mg IVP once; over 2 minutes Route: IVP; Site: right antecubital;tm6 07:00 Follow up: Response: No adverse reaction rs5 07:01 Drug: NS 0.9% IV 1000 ml IV at 125 ml/hr continuous Route: IV; Rate: 125 ml/hr; Site: rs5 right femoral; 07:15 Follow up: Response: No adverse reaction rs5 07:33 Drug: HYDROcodone-acetaminophen PO 5 mg-325 mg 2 tabs PO once Route: PO; rs5 07:59 Follow up: Response: No adverse reaction rs5 07:33 Drug: Promethazine PO 25 mg PO once Route: PO; rs5 07:59 Follow up: Response: No adverse reaction rs5 Medication: 06:09 VIS not applicable for this client. tm6 Outcome: 07:36 Discharge ordered by . sp4 07:59 Discharged to home ambulatory, rs5 07:59 Condition: stable 07:59 Discharge instructions given to patient, family, Instructed on discharge instructions, follow up and referral plans. Demonstrated understanding of instructions, follow-up care, medications, Prescriptions given X 2, 08:00 Patient left the ED. rs5 Signatures: Dispatcher [employer] EDMS Almaz Nguyễn RN RN ap3 Dominique Gastelum RN RN vc1 Ryan Padilla RN RN jj7 Frida Petty RN RN pf1 Rafael Foreman RN RN rs5 Bao Lucas MD MD sp4 Arianna Bonilla 2 Leisa Trujillo RN RN tm6 Corrections: (The following items were deleted from the chart) 05:51 05:50 Triage completed. pf1 pf1 09:29 08:01 Reassessment: Patient and/or family updated on plan of care and expected rs5 duration. Pain level reassessed. Patient is alert, oriented x 3, equal unlabored respirations, skin warm/dry/pink. Patient states feeling better. Patient states symptoms have improved. rs5 09:30 07:17 BP 146 / 94; ap3 rs5
[2023-12-01] MEDS ORDERED: PROMETHAZINE 25 MG TABLET ONE (07:47)
[2023-12-01] MEDS ORDERED: HYDROCODONE/APAP 5/325 MG TAB ONE (07:48)
[2023-12-01 08:20] VITALS: BP 146/94; TEMP 97.9; O2SAT 100
== END 2023-12-01 08:00 | disposition home or self-care (01) ==
LOC: ER 05:34
DX: K52.9 Noninfective gastroenteritis and colitis, unspecified (principal)
CPT/HCPCS: 36415; 74177; 80053; 81003; 83690; 85025; J2270; J2405; J2765; J7030; Q0169; Q9967